=== PATIENT | male | born 1995 | race Caucasian/White ===

== ENCOUNTER 2016-10-05 09:33 | Emergency (ER) | payer BC ==
[2016-10-05 09:47] VITALS: BP 126/92
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
== END 2016-10-05 10:41 | disposition home or self-care (01) ==
LOC: JD.ED 09:33
DX: S05.02XA Injury of conjunctiva and corneal abrasion without foreign body, left eye, initial encounter (principal); X58.XXXA Exposure to other specified factors, initial encounter; Z98.890 Other specified postprocedural states
CPT/HCPCS: 99283

== ENCOUNTER 2020-06-03 16:22 | Emergency (ER) | payer BC ==
[2020-06-03 16:51] VITALS: BP 159/96; PULSE 92
[2020-06-03] MEDS ORDERED: Orphenadrine 100 MG Tab.ER PO ONE (17:19)
[2020-06-03] MEDS ORDERED: Ketorolac 60 MG/2 ML SDV IM ONE (17:19)
--- NOTE | 2020-06-03 17:28 | EDM.PDOC ---
<April Morrissey - Last Filed: 06/03/20 17:22> ED HPI GENERAL MEDICAL PROBLEM - General Chief Complaint: Back Pain or Injury Stated Complaint: BACK PAIN & TROUBLE WALKING Time Seen by Provider: 06/03/20 17:13 Source of Information: Reports: Patient History Limitations: Reports: No Limitations - History of Present Illness INITIAL COMMENTS - FREE TEXT/NARRATIVE: Tanmay is a 24 year old male presenting to the ED with complaints of lower back pain. He states he was working out this morning and went to lay down on a bench with some weights when he "tweaked" his back. He took 800 mg of Ibuprofen at 0600. The pain is located mainly at his left lower back and shoots down his leg. He describes it as a constant, shooting, sharp pain to his mid thigh and mild tingling in his toes. He states that the pain is mildly relieved when he lays flat and is exacerbated when ambulating and moving from a laying to seated position. He admits to getting tunnel vision in the afternoon because the pain was so severe. He denies any fevers, chills, cough, chest pain, nausea, or vomiting. Left Lower Back Pain Score (Numeric/FACES): 9 - Related Data Allergies Allergy/AdvReac Type Severity Reaction Status Date / Time No Known Allergies Allergy Verified 06/03/20 16:51 Home Meds: Home Meds Orphenadrine [Norflex] 100 mg PO BID PRN #20 tab 06/03/20 [Rx] predniSONE 20 mg PO ASDIRECTED #15 tab 06/03/20 [Rx] Past Medical History Musculoskeletal History: Reports: Fracture - Past Surgical History HEENT Surgical History: Reports: Naso-Sinus Surgery Social & Family History - Tobacco Use Tobacco Use Status *Q: Current Every Day Tobacco User Years of Tobacco use: 4 Packs/Tins Daily: 0.2 - Caffeine Use Caffeine Use: Reports: None - Recreational Drug Use Recreational Drug Use: No ED ROS GENERAL - Review of Systems Review Of Systems: Comprehensive ROS is negative, except as noted in HPI. ED EXAM,LOWER BACK PAIN/INJURY - Physical Exam Exam: See Below Exam Limited By: No Limitations General Appearance: Alert, WD/WN, Moderate Distress (secondary to pain ) Respiratory/Chest: No Respiratory Distress, Lungs Clear, Normal Breath Sounds Cardiovascular: Normal Peripheral Pulses, Regular Rate, Rhythm, No Edema, No Gallop, No Murmur, No Rub GI/Abdominal: Normal Bowel Sounds, Soft, Non-Tender Back Exam: Other (Patient was in obvious pain when palpating along the left lower back near the level of the iliac crest. ) Neurological: Alert, Normal Mood/Affect, CN II-XII Intact, Abnormal Gait (due to pain), Withdraws to Pain, Straight Leg Raise (L), Other (Dorsiflexion and plantar flexion of left leg illicited severe pain. Patient was unable to fully perform these motions. ) Psychiatric: Normal Affect, Normal Mood Skin Exam: Warm, Dry, Intact, Normal Color, No Rash Lymphatic: No Adenopathy Course - Re-Assessments/Exams Free Text/Narrative Re-Assessment/Exam: 06/03/20 17:33 Tanmay is a 24 year old male presenting to the ED with complaints of lower back pain that occurred this morning during his work out. He states it is a sharp, shooting pain down his leg with tingling in his toes. He is obviously uncomfortable and is requesting some pain medications at this time. Pain medication as well as a muscle relaxer are ordered. Xray of lumbar spine is ordered. Departure - Departure Disposition: Home, Self-Care 01 Clinical Impression: Low back pain Qualifiers: Chronicity: acute Back pain laterality: left Sciatica presence: with sciatica Sciatica laterality: sciatica of left side Qualified Code(s): M54.42 - Lumbago with sciatica, left side - Discharge Information Prescriptions: Orphenadrine [Norflex] 100 mg PO BID PRN #20 tab PRN Reason: Spasms predniSONE 20 mg PO ASDIRECTED #15 tab Instructions: Acute Back Pain, Adult Referrals: PCP,None [Primary Care Provider] - Forms: ED Department Discharge Additional Instructions: You have been evaluated in the ED for your low back/left leg pain. Your x-ray demonstrated no acute fractures or other bony abnormalities of your lumbar spine. Please use ice/heat as tolerated to the affected area. Please try to elevate the affected area to relieve swelling. You may try chiropractor services if these provide relief. You were given a prescription for muscle relaxers and steroids, to help relieve the nerve inflammation. Steroid dosing will be 1 tablet 2 times a day for the next 5 days, then 1 tablet once daily for the remaining 5 days. Your muscle relaxer will be 1 tablet 2 times a day as needed for further muscle spasms. Please return to ED if your symptoms should change or worsen. Sepsis Event Note (ED) - Evaluation Sepsis Screening Result: No Definite Risk <Gina Hartman V - Last Filed: 06/03/20 18:29> Course - Vital Signs Last Recorded V/S: Last Vital Signs Temp 97.6 F 06/03/20 16:48 Pulse 92 06/03/20 16:48 Resp 16 06/03/20 16:48 BP 159/96 H 06/03/20 16:48 Pulse Ox 96 06/03/20 16:48 - Orders/Labs/Meds Orders: Active Orders 24 hr Category Date Time Status Lumbar Spine 2 or 3V [CR] Stat Exams 06/03/20 17:19 Ordered Meds: Medications Discontinued Medications Generic Name Dose Route Start Last Admin Trade Name Freq PRN Reason Stop Dose Admin Ketorolac Tromethamine 60 mg 06/03/20 17:19 06/03/20 17:35 Toradol IM 06/03/20 17:20 60 mg ONETIME ONE Administration Orphenadrine Citrate 100 mg 06/03/20 17:19 06/03/20 17:35 Norflex PO 06/03/20 17:20 100 mg ONETIME ONE Administration - Re-Assessments/Exams Free Text/Narrative Re-Assessment/Exam: 06/03/20 18:26 I have read and reviewed the student's HPI and examined the patient and agree with SERGEY Howe-student. Patient's lumbar films demonstrate no focal fractures or other acute abnormalities. Patient notes that the meds given to him did make him feel a little bit better. We will get him home with general recommendations. Highly likely that he is suffering from some sort of sciatic component in nature due to the radiculopathy on his left leg. Departure - Departure Time of Disposition: 18:27 Condition: Good - Discharge Information *PRESCRIPTION DRUG MONITORING PROGRAM REVIEWED*: No *COPY OF PRESCRIPTION DRUG MONITORING REPORT IN PATIENT SONNY: No Sepsis Event Note (ED) - Focused Exam Vital Signs: Vital Signs Temp Pulse Resp BP Pulse Ox 06/03/20 16:48 97.6 F 92 16 159/96 H 96 - My Orders Last 24 Hours: My Active Orders 06/03/20 17:19 Lumbar Spine 2 or 3V [CR] Stat - Assessment/Plan Last 24 Hours: My Active Orders 06/03/20 17:19 Lumbar Spine 2 or 3V [CR] Stat
--- NOTE | 2020-06-03 18:48 | CR ---
Lumbar spine: AP, lateral and coned-down lateral views centered to the lumbosacral junction were obtained. There appears to be an old fracture within the distal sacrum slightly proximal to the coccyx. Vertebral body heights and disc spaces are maintained. Pedicles are intact. Visualized transverse and spinous processes are intact. Sacroiliac joints are normal. Impression: 1. Findings suspicious for old fracture within the distal sacrum. 2. Three-view lumbar spine study is otherwise unremarkable. Diagnostic code #2
== END 2020-06-03 18:37 | disposition home or self-care (01) ==
LOC: JD.ED 16:22
DX: M54.42 Lumbago with sciatica, left side (principal); Z72.0 Tobacco use
CPT/HCPCS: 72100; 96372; 99283; A9270; J1885